=== PATIENT | male | born 1970 ===

== ENCOUNTER 2017-05-11 08:41 | Day surgery (SDC) | payer OTHER ==
[~2017-05-11] VITALS: Ht 188 cm; Wt 108.9 kg
[2017-05-11] VITALS (11 sets, daily range): BP systolic 118–143; BP diastolic 73–83
[2017-05-11] MEDS ORDERED: Bupivacaine w/Epi 0.75% 30ml Vial INJ ONE (08:49)
[2017-05-11] MEDS ORDERED: TYLENOL EXTRA500 MG ORAL (09:29)
[2017-05-11] MEDS ORDERED: Midazolam 2mg/2ml Inj ONE (09:30)
[2017-05-11] MEDS ORDERED: Glycopyrrolate 0.2mg/ml 1ml Vial ONE (09:30)
[2017-05-11] MEDS ORDERED: Neostigmine 1mg/ml 10ml Inj ONE (09:30)
[2017-05-11] MEDS ORDERED: LR 1000ml ONE (09:30)
[2017-05-11] MEDS ORDERED: Propofol 200mg/20ml IV ONE (09:30)
[2017-05-11] MEDS ORDERED: fentaNYL 100 mcg/2 mL IV ONE (09:30)
[2017-05-11] MEDS ORDERED: Sterile Water Irrig 1000ml IRRIG ONE (09:30)
[2017-05-11] MEDS ORDERED: Lidocaine 1% MPF 10mg/ml 5ml ONE (09:30)
[2017-05-11] MEDS ORDERED: Zemuron 50mg/5ml Inj IV ONE (09:30)
[2017-05-11] MEDS ORDERED: NS Irrig 1000ml ONE (09:30)
[2017-05-11] MEDS ORDERED: Metoclopramide 10mg/2ml Inj ONE (09:30)
[2017-05-11] MEDS ORDERED: Succinylcholine 20mg/ml 10ml vial ONE (09:30)
--- NOTE | 2017-05-11 09:52 | Pre-Procedure Note/Attestation ---
Pre-Procedure Note/Attestation Complete Prior to Procedure Planned Procedure: left Indications for Procedure Pre-Operative Diagnosis: Left anterior lateral anal/rectal fistula Attestation I attest that I discussed the nature of the procedure; its benefits; risks and complications; and alternatives (and the risks and benefits of such alternatives ), prior to the procedure, with the patient (or the patient's legal solar manufacturer's representative). I attest that, if there was a reasonable possibility of needing a blood transfusion, the patient (or the patient's legal solar manufacturer's representative) was given the [facility] standardized written summary, pursuant to the Theo Hassell Blood Safety Act ([place] Health and Safety Code # 1645, as amended). I attest that I re-evaluated the patient just prior to the surgery and that there has been no change in the patient's H&P, except as documented below: Sebastian Hernandez DO May 11, 2017 09:52
[2017-05-11] MEDS ORDERED: Hydrogen Peroxide 473ml Bottle TOPIC ONE (10:17)
[2017-05-11] MEDS ORDERED: Thrombin 5000 units TOPIC ONE (10:57)
--- NOTE | 2017-05-11 11:20 | Immediate Post-Op Evaluation ---
Immediate Post-Op Evalulation Immediate Post-Op Evalulation Procedure: Fistulotomy Date of Evaluation: May 11, 2017 Time of Evaluation: 11:18 IV Fluids: 600 Blood Products: 0 Estimated Blood Loss: 0 Urinary Output: 0 Blood Pressure Systolic: 134 Blood Pressure Diastolic: 78 Pulse Rate: 64 Respiratory Rate: 14 O2 Sat by Pulse Oximetry: 100 Temperature (Fahrenheit): 97.8 Pain Score (1-10): 0 Nausea: No Vomiting: No Complications none Patient Status: awake, reacts, patent Hydration Status: adequate Drug: declined ELÍAS HOFFMAN CRNA May 11, 2017 11:20
--- NOTE | 2017-05-11 11:22 | Anethesia Preoperative Eval ---
Anesthesia Pre-op PMH/ROS General Date of Evaluation: May 11, 2017 Time of Evaluation: 10:30 Anesthesiologist: pretty ASA Score: ASA 2 Mallampati Score Class I : Soft palate, uvula, fauces, pillars visible Class II: Soft palate, uvula, fauces visible Class III: Soft palate, base of uvula visible Class IV: Only hard plate visible Mallampati Classification: Class II Surgeon: [place] Diagnosis: fistual Surgical Procedure: fistulotomy Anesthesia History: PONV Allergies: Coded Allergies: PENICILLINS (Verified Allergy, Intermediate, 05/11/17) hives CODEINE (Verified Adverse Reaction, Intermediate, 05/11/17) vomiting Medications: see eMAR Past Medical History Cardiovascular: Denies: HTN, CAD, ME, valve dz, arrhythmia, other Pulmonary: Denies: asthma, COPD, DANY, other Gastrointestinal/Genitourinary: Denies: GERD, CRI, ESRD, other Neurologic/Psychiatric: Denies: dementia, CVA, depression/anxiety, TIA, other Endocrine: Denies: DM, hypothyroidism, steroids, other HEENT: Denies: cataract (L), cataract (R), glaucoma, TANACROSS (L), TANACROSS (R), other Musculoskeletal/Integumentary: Denies: OA, RA, DJD, DDD, edema, other Other: obesity PSxH Narrative: colonoscopy Anesthesia Pre-op Phys. Exam Physician Exam Last Vital Signs Date Time Temp Pulse Resp B/P (MAP) Pulse Ox O2 Delivery O2 Flow Rate FiO2 05/11/17 09:24 97.3 75 18 143/78 99 Room Air Constitutional: NAD Neurologic: CN 2-12 intact Cardiovascular: RRR Respiratory: CTA Airway Exam Mallampati Classification 2 Mallampati Score: Class II MO: full Neck: thick TMD: 2fb ROM: full Dentures: no upper, no lower Anesthesia Pre-op A/P Studies Pre-op Studies: EKG - dt Risk Assessment & Plan Assessment: healthy patient Plan: general Status Change Before Surgery: No Pre-Antibiotics Drug: none ELÍAS HOFFMAN CRNA May 11, 2017 11:22
--- NOTE | 2017-05-11 11:24 | Operative Note - PDOC ---
Operative Note Operative Note Chief Complaint: Left Anterior lateral anal/rectal fistula Pre-op Diagnosis: Left anterior lateral anal/rectal fistula Procedure: Fistulotomy/Fistulectomy of complex curved fistula in the left anterior lateral position Post-op Diagnosis: Fistulotomy/Fistulectomy of complex curved fistula in the left anterior lateral position Surgeon: Dr. Sebastian Hernandez Inspector Watch Parts: Dr. Marry Liao Anesthesiologist: Dr. Henry Anesthesia: general Specimen: yes Complications: none Condition: stable Estimated Blood Loss: minimal Drains: none Implant(s) used?: No Indications for Procedure Left Anterior Lateral Fistula jazmine/rectal Description of Procedure Fistulotomy/Fistulectomy Sebastian Hernandez DO May 11, 2017 11:24
[2017-05-11] MEDS ORDERED: Metoclopramide 10mg/2ml Inj IVP PRN (11:30)
[2017-05-11] MEDS ORDERED: fentaNYL 100 mcg/2 mL IV PRN (11:30)
--- NOTE | 2017-05-11 11:38 | 48 Hour Post Anesthesia Eval ---
Post Anesthesia Evaluation Procedure: Fistulotomy Date of Evaluation: May 11, 2017 Time of Evaluation: 11:38 Blood Pressure Systolic: 126 0: 80 Pulse Rate: 62 Respiratory Rate: 14 Temperature (Fahrenheit): 97.4 Nausea: Yes Vomiting: No Hydration Status: adequate Cardiopulmonary Status: stable Mental Status/LOC: patient returned to baseline Follow-up care needed: N/A ELÍAS HOFFMAN CRNA May 11, 2017 11:38
--- NOTE | 2017-05-12 02:15 | Operative Note - Dictated ---
DATE OF OPERATION: 05/11/2017 NOTE: INCOMPLETE DICTATION SURGEON: Sebastian Hernandez M.D. ANESTHESIOLOGIST: Dr. Henry. ANESTHESIA: General with endotracheal intubation. PREOPERATIVE DIAGNOSIS: Left anterolateral anal/rectal fistula tract. POSTOPERATIVE DIAGNOSIS: Left anterolateral anal/rectal fistula tract. OPERATION PERFORMED: Fistulotomy/fistulectomy with possible seton placement and possible LIFT procedure. OPERATIVE FINDING: Curved tract in the left anterolateral position perianally that opened in the anterior midline at the level of the dentate line. ESTIMATED BLOOD LOSS: Less than 5 mL. INTRAOPERATIVE COMPLICATIONS: None. DISPOSITION: The patient tolerated the procedure well and was taken to the recovery area in stable condition. INDICATIONS: This 46-year-old male was brought to the [facility] on 05/11/2017 with history of having a left anterolateral anal/rectal fistula. The patient had a . Sebastian Hernandez M.D DR: Dulce Maria JOB#: [id number] CC:
--- NOTE | 2017-05-12 02:15 | Operative Note - Dictated ---
DATE OF OPERATION: 05/11/2017 SURGEON: Sebastian Hernandez M.D. ANESTHESIOLOGIST: Dr. Henry. ANESTHESIA: General with endotracheal intubation. PREOPERATIVE DIAGNOSIS: Left anterolateral anal/rectal fistula opening in the anterior midline. POSTOPERATIVE DIAGNOSIS: Left anterior lateral anal/rectal fistula opening in the anterior midline. OPERATION PERFORMED: Fistulotomy, fistulectomy and possible seton placement, and possible LIFT procedure. OPERATIVE FINDINGS: There is a curved complex fistula tract that starts in the external left anterolateral position and traveled to the internal anterior midline at the level of the dentate line. ESTIMATED BLOOD LOSS: Less than 5 mL. INTRAOPERATIVE COMPLICATIONS: None. DISPOSITION: The patient tolerated the procedure well and was taken to recovery area in stable condition. INDICATION: This 46-year-old male was brought to the [facility] on 05/11/2017 with a history of a left anterolateral anal/rectal fistula with an opening to the inside at the anterior midline. This was seen on colonoscopy. The patient has a history of having a fistulotomy in the same location with lateral internal sphincterotomy in that same location many years back. The patient also has a history of having a very large ischiorectal / perianal abscess that was incision and drained on 04/14/2017 in the same position. On examination in the office, the patient was hemodynamically stable and afebrile with an abdominal exam that was benign without any guarding, distention, or hepatosplenomegaly. Digital rectal examination in the office revealed no internal opening, however, anoscopic examination at the time of colonoscopy revealed the opening at the anterior midline at the level of the dentate line. The potential risks and complications of the procedure were discussed at length with the patient including, but not limited to pain, bleeding, infection, stenosis, failure to heal, delayed healing, fecal incontinence, recurrent. Incontinence to gas, solid and liquid stool as well as the option of not performing the procedure. Given the risk of the patient has had an already existing fistulotomy, fistulectomy multiple years back as well as lateral internal sphincterotomy, the risks of these, which were increased including fecal incontinence to gas, liquid and solid stools were discussed with the patient at length both in the office and again today prior to surgery, and the patient verbalized understanding all these risks and elected to proceed. OPERATIVE TECHNIQUE: The patient was seen in the preoperative holding area where intravenous access was established and appropriate monitoring devices were placed. The patient was then taken to the operative theater where general anesthesia with endotracheal intubation was administered by the anesthesiologist present. The patient was then placed in a prone jackknife position. Arms and legs were padded and positioned to prevent nerve stretch. Care was taken to take pressure off the elbows, knees, and ankles. Padding was placed under the calf as well as the feet to take the pressure off the lumbar spine. The neck was placed in a neutral position. Next, the buttocks were taped to operative table for adequate visualization. At this time, the left anterolateral fistula opening was visualized. The area was prepped and draped in the usual sterile fashion. Next, hydrogen peroxide with an Angiocath was used to inject from the left anterolateral external opening and with a chan rectractor in place in the anterior midline, hydrogen peroxide was seen at the level of the dentate line. Next, the tract was attempted to be probed from the left anterolateral position; however, the internal opening was not identifiable because the tract was curved. Next, a fistula probe was used in the internal opening, which met the fistula probe from the external opening. At this time, the Bovie used in cautery mode. It was used to dissect the internal opening first. Very little internal sphincter musculature was dissected. Next, the tract was cauterized with the Bovie starting from the distal portion, and the distal and proximal portion was met. The tract was curved. Next, a portion of the tract was sent to pathology for evaluation. Next, a curette was used to curette the entirety of the tract. Next, the Bovie was used to cauterize the entirety of the tract. Next, normal saline was used to irrigate the tract copiously. There was a portion of the tract, which was deep towards the mid distal portion, which was cauterized thoroughly. Next, the Toan retractor was . All quadrants were visualized. No bleeding was seen. No other masses or hematomas were seen. Next, Gelfoam soaked in thrombin was placed inside the anal canal and rectum as well as perianal area. The muscle tone prior to Gelfoam being placed with the digital rectal exam on a gloved finger appeared to be good. At the conclusion of the case, instrument, sponge, and needle counts were correct. Estimated blood loss was less than 5 mL. Multiple 4x4s were then firmly placed against the Gelfoam and secured this with a Microfoam tape. The patient tolerated the procedure well and was taken to the recovery area in stable condition. In the recovery area, the patient was apprised of my operative findings as well as his . The patient denied any pain, but had some nausea and was given Zofran by the anesthesiologist. The patient was given a prescription for Radcliff 5/325 mg for pain along with MiraLAX one capful mixed with water or juice daily and Cipro 500 mg 1 p.o. b.i.d. for 5 days. The patient was advised to contact my office immediately if he has any episodes of paresthesia or numbness or tingling in his feet. Sebastian Hernandez M.D DR: ANDRE JOB#: [id number] CC: KEVIN
== END 2017-05-11 12:45 | disposition home or self-care (01) ==
LOC: SUR 08:41
DX: K60.3 Anal fistula (principal); Z88.6 Allergy status to analgesic agent; Z88.0 Allergy status to penicillin; E66.9 Obesity, unspecified; Z68.30 Body mass index [BMI] 30.0-30.9, adult
CPT/HCPCS: 46275; J0330; J2250; J2405; J2704; J2710; J2765; J3010; J7120; 94003; 94150